=== PATIENT | female | born 1965 ===

== ENCOUNTER 2023-03-17 11:23 | Outpatient (CLI) | payer OTHER ==
[2023-03-17 12:29] LABS: PH,URINE 5.5 (5.0-8.0); URINE APPEARANCE Clear; URINE BILIRRUBIN Negative (NEGATIVE); URINE BLOOD Trace; URINE COLOR Yellow; URINE GLUCOSE Negative (NEGATIVE); URINE LEUKOCYTE Negative; URINE NITRATE Negative; URINE PROTEIN Negative (NEGATIVE); URINE UROBILINOGEN 0.2 E.U./dl
[2023-03-17 12:30] LABS: URINE BACTERIA 52.9 uL (0.0-1933); URINE EPITHELIAL CELLS 4.7 uL (0.0-38.8)
[2023-03-17 12:44] LABS: HEMATOCRIT 41.2 % (36.0-45.00); HEMOGLOBIN 14.5 g/dL (12.0-15.00); MEAN CORPUSCULAR HEMOGLOBIN 31.7 pg (27.00-32.0); MEAN CORPUSCULAR HGB CONC 35.3 g/dl (32.0-36.0); PLATELET COUNT 355 K/uL (150-450); RED BLOOD COUNT 4.57 M/uL (4.00-6.00); RED CELL DISTRIBUTION WIDTH 12.1 % (11.5-14.5)
[2023-03-17 13:21] LABS: ALBUMIN 4.1 gm/dL (3.4-5.0); BILIRUBIN TOTAL 0.43 mg/dL (0.3-1.2); CALCIUM 9.6 mg/dL (8.5-10.1); CHOL HDL RATIO 5.9 (0-5.0); CREATININE SERUM 0.7 mg/dL (0.55-1.02); FREE TRIODOTIRONINE 3.1 pg/ml (2.18-3.98); GFR 85.94; GLOBULINA 3.5 G/DL (2.4-3.5); POTASSIUM 4.13 mEq/L (3.5-5.1); T4 FREE 0.93 NG/ML (0.76-1.46); TOTAL PROTEIN 7.6 gm/dL (6.4-8.2); TSH 1.34 uIU/mL (0.358-3.74)
== END 2023-03-17 11:24 | disposition home or self-care (01) ==
LOC: LAB 11:23 → EDBD 11:23 → LAB 11:24
DX: I11.9 Hypertensive heart disease without heart failure (principal); E55.9 Vitamin D deficiency, unspecified; Z12.11 Encounter for screening for malignant neoplasm of colon; R30.0 Dysuria; E06.9 Thyroiditis, unspecified; E11.8 Type 2 diabetes mellitus with unspecified complications; E78.2 Mixed hyperlipidemia; E16.2 Hypoglycemia, unspecified; K62.5 Hemorrhage of anus and rectum

== ENCOUNTER 2023-04-25 09:34 | Outpatient (CLI) | payer OTHER | END 2023-04-25 09:43 | disposition home or self-care (01) | LOC: RAD 09:34 | DX: S92.002A Unspecified fracture of left calcaneus, initial encounter for closed fracture (principal) ==

== ENCOUNTER 2023-06-06 11:10 | Outpatient (CLI) | payer OTHER | END 2023-06-06 11:18 | disposition home or self-care (01) | LOC: RAD 11:10 | DX: S92.002D Unspecified fracture of left calcaneus, subsequent encounter for fracture with routine healing (principal) ==

== ENCOUNTER 2023-09-06 08:55 | Outpatient (CLI) | payer OTHER ==
[2023-09-06 09:50] LABS: HEMATOCRIT 40.5 % (36.0-45.00); HEMOGLOBIN 14.2 g/dL (12.0-15.00); MEAN CELL VOLUME 90.3 fL (80.00-100.00); MEAN CORPUSCULAR HEMOGLOBIN 31.7 pg (27.00-32.0); MEAN CORPUSCULAR HGB CONC 35.1 g/dl (32.0-36.0); PLATELET COUNT 333 K/uL (150-450); RED BLOOD COUNT 4.49 M/uL (4.00-6.00); RED CELL DISTRIBUTION WIDTH 12.4 % (11.5-14.5)
[2023-09-06 10:22] LABS: PH,URINE 5.5 (5.0-8.0); URINE APPEARANCE Clear; URINE BILIRRUBIN Negative (NEGATIVE); URINE BLOOD Trace; URINE COLOR Yellow; URINE GLUCOSE Negative (NEGATIVE); URINE LEUKOCYTE Negative; URINE NITRATE Negative; URINE PROTEIN Negative (NEGATIVE); URINE UROBILINOGEN 0.2 E.U./dl
[2023-09-06 10:28] LABS: URINE BACTERIA 398.1 uL (0.0-1933); URINE EPITHELIAL CELLS 13.5 uL (0.0-38.8); URINE RBC 7.1 uL (0.0-20.8); URINE WBC 8.1 uL (0.0-23.2)
[2023-09-06 11:27] LABS: ALBUMIN 4.1 gm/dL (3.4-5.0); BILIRUBIN TOTAL 0.72 mg/dL (0.3-1.2); CALCIUM 9.5 mg/dL (8.5-10.1); CHOL HDL RATIO 3.7 (0-5.0); CREATININE SERUM 0.58 mg/dL (0.55-1.02); GFR 106.77; GLOBULINA 3.4 G/DL (2.4-3.5); POTASSIUM 3.69 mEq/L (3.5-5.1); TOTAL PROTEIN 7.5 gm/dL (6.4-8.2); TSH 1.28 uIU/mL (0.358-3.74)
== END 2023-09-06 09:02 | disposition home or self-care (01) ==
LOC: LAB 08:55
PROVIDERS: ATTEND General Practice
DX: I11.9 Hypertensive heart disease without heart failure (principal); E55.9 Vitamin D deficiency, unspecified; Z12.11 Encounter for screening for malignant neoplasm of colon; R30.0 Dysuria; E06.9 Thyroiditis, unspecified; E11.8 Type 2 diabetes mellitus with unspecified complications; E78.2 Mixed hyperlipidemia; E16.2 Hypoglycemia, unspecified; K62.5 Hemorrhage of anus and rectum; N92.5 Other specified irregular menstruation

== ENCOUNTER 2023-09-06 10:47 | Outpatient (CLI) | payer OTHER | END 2023-09-06 10:48 | disposition home or self-care (01) | LOC: MAMO-SONO 10:47 | PROVIDERS: ATTEND General Practice | DX: N64.4 Mastodynia (principal); Z12.31 Encounter for screening mammogram for malignant neoplasm of breast ==

== ENCOUNTER 2023-11-29 09:08 | Outpatient (CLI) | payer OTHER | END 2023-11-29 09:14 | disposition home or self-care (01) | LOC: RAD 09:08 | DX: S92.015D Nondisplaced fracture of body of left calcaneus, subsequent encounter for fracture with routine healing (principal) ==

== ENCOUNTER → 2023-11-29 09:40 | Outpatient (CLI) | payer OTHER ==
[2023-11-29 10:22] LABS: HEMATOCRIT 40.2 % (36.0-45.00); HEMOGLOBIN 14.1 g/dL (12.0-15.00); MEAN CELL VOLUME 90.6 fL (80.00-100.00); MEAN CORPUSCULAR HEMOGLOBIN 31.9 pg (27.00-32.0); MEAN CORPUSCULAR HGB CONC 35.2 g/dl (32.0-36.0); PLATELET COUNT 337 K/uL (150-450); RED BLOOD COUNT 4.44 M/uL (4.00-6.00); RED CELL DISTRIBUTION WIDTH 12.1 % (11.5-14.5)
[2023-11-29 11:04] LABS: BILIRUBIN TOTAL 0.69 mg/dL (0.3-1.2); CALCIUM 9.3 mg/dL (8.5-10.1); CREATININE SERUM 0.61 mg/dL (0.55-1.02); GFR 100.39; GLOBULINA 3.5 G/DL (2.4-3.5); POTASSIUM 3.82 mEq/L (3.5-5.1); TOTAL PROTEIN 7.5 gm/dL (6.4-8.2)
== END | disposition home or self-care (01) ==
LOC: LAB 09:40
DX: D64.9 Anemia, unspecified (principal); R74.01 Elevation of levels of liver transaminase levels

== ENCOUNTER 2024-03-04 09:32 | Outpatient (CLI) | payer OTHER | END 2024-03-04 09:38 | disposition home or self-care (01) | LOC: RAD 09:32 | DX: S92.002D Unspecified fracture of left calcaneus, subsequent encounter for fracture with routine healing (principal) ==